=== PATIENT | female | born 1965 | race Caucasian/White ===

== ENCOUNTER 2024-07-02 08:00 | Outpatient (RCR) | payer OTHER, SELFPAY ==
[2024-07-01] MEDS: SODIUM CHLORIDE 0.9 % (FLUSH) 10 ML SYRINGE IVF (10:59)
[2024-07-01] MEDS: HEPARIN 500 UNIT/5 ML SYRINGE IVF (11:00)
[2024-07-02 08:57] VITALS: BP 91/62; PULSE 98; RESP 18; TEMP 36.1; O2SAT 94
[2024-07-02 09:17] VITALS: BP 96/36; PULSE 91; RESP 18; TEMP 36.6; O2SAT 94
[2024-07-02 09:19] VITALS: BP 101/69; PULSE 86; RESP 18; TEMP 36.3; O2SAT 94
[2024-07-02 09:49] VITALS: BP 94/38; PULSE 81; RESP 18; TEMP 36.3; O2SAT 95
[2024-07-02 10:19] VITALS: BP 104/52; PULSE 84; RESP 16; TEMP 36.5; O2SAT 94
[2024-07-02 11:45] VITALS: BP 119/72; PULSE 85; RESP 18; TEMP 36.3; O2SAT 94
== END 2024-12-28 23:59 | disposition home or self-care (01) ==
LOC: CCIC 08:00
PROVIDERS: Visit Provider Clinical Nurse Specialist
DX: D64.9 Anemia, unspecified (principal)
CPT/HCPCS: 36415; 36430; 36591; 86850; 86870; 86880; 86885; 86900; 86901; 86922; J1642; P9016